=== PATIENT | male | born 1990 | race Caucasian/White ===

== ENCOUNTER 2019-12-25 12:05 | Emergency (ER) | payer BC, SELFPAY ==
[2019-12-25] MEDS ORDERED: Ibuprofen 800 MG TAB ONE (12:47)
== END 2019-12-25 12:57 | disposition home or self-care (01) ==
LOC: MADERS 12:05
DX: S43.401A Unspecified sprain of right shoulder joint, initial encounter (principal); R21 Rash and other nonspecific skin eruption; X58.XXXA Exposure to other specified factors, initial encounter; Y93.72 Activity, wrestling
CPT/HCPCS: 99283

== ENCOUNTER 2020-05-14 13:01 | Emergency (ER) | payer SELFPAY ==
[2020-05-14] MEDS ORDERED: Lidocaine 1% w/Epinephrine 1:100K 20 ML VIAL ONE (13:17)
[2020-05-14] MEDS ORDERED: Boostrix 0.5 ML (Tdap) VIAL ONE (13:37)
[2020-05-14] MEDS ORDERED: HYDROcodone/Acetaminophen 5/325 mg Tablet ONE (13:48)
[2020-05-14] MEDS ORDERED: Cephalexin 500 MG CAP ONE (13:49)
[2020-05-14] MEDS ORDERED: Bacitracin 1 PK ONE (13:49)
== END 2020-05-14 14:08 | disposition home or self-care (01) ==
LOC: MADERS 13:01
DX: S71.111A Laceration without foreign body, right thigh, initial encounter (principal); Z23 Encounter for immunization; W27.0XXA Contact with workbench tool, initial encounter
CPT/HCPCS: 12004; 90471; 90715

== ENCOUNTER 2022-01-08 11:22 | Emergency (ER) | payer BC, SELFPAY ==
[~2022-01-08 11:22] MED LIST: Sodium Chloride 0.9% 1,000 ML BAG ONE
[2022-01-08] MEDS ORDERED: Ondansetron PF 4 MG/2 ML Vial ONE (11:43)
[2022-01-08] MEDS ORDERED: Ketorolac Tromethamine 30 MG/ML VIAL ONE (12:15)
[2022-01-08] MEDS ORDERED: diphenhydrAMINE 50 MG/ML VIAL ONE (12:15)
[2022-01-08] MEDS ORDERED: Sodium Chloride 0.9% 2,000 ML ONE (12:15)
[2022-01-08] MEDS ORDERED: Metoclopramide HCl 10 MG/2 ML VIAL ONE (12:15)
[2022-01-08 12:36] LABS: Base Excess-Venous 0.4 mmol/L (-2.0 to 3.0); Bicarbonate (HCO3v) 24.9 mmol/L (22.0-28.0); CO2 Tension (PvCO2) 38.9 mmHg (42.0-51.0); Calcium, Ionized 1.14 mmol/L (1.15-1.33); Chloride 106 mmol/L (98-107); Hemoglobin - Calc 13.8 g/dL (14.0-18.0); Potassium 3.6 mmol/L (3.5-5.1); Sodium 142 mmol/L (138-145); T. Carbon Dioxide 26.1 mmol/L (22.0-28.0); vO2 Saturation-calc 90.1 % (60.0-85.0)
[2022-01-08 12:36] LABS: #Basophils 0.1 thou/uL (0.0-0.2); #Eosinphils 0.4 thou/uL (0.0-0.7); #Lymphocytes 2.7 thou/uL (1.20-3.40); #Monocytes 0.5 thou/uL (0.11-0.59); %Basophils 1.3 % (0.0-1.0); %Eosinophils 6.2 % (0.0-10.0); %Lymphocytes 40.7 % (21.0-51.0); %Neutrophils 43.9 % (42.0-75.0); Hemoglobin 15.2 g/dL (14.0-18.0); Mean Corpuscular HGB CONC 33.6 g/dL (32.0-36.0); Mean Corpuscular Volume 83.5 fL (78.0-98.0); Platelet Count 156 thou/uL (130-400); RBC Distribution Width 11.9 % (11.5-14.5); Red Blood Cell (RBC) Count 5.42 mill/uL (4.70-6.10); White Blood Cell (WBC) Count 6.4 thou/uL (4.8-10.8)
[2022-01-08 12:41] LABS: Acetaminophen Less than 10.0 mcg/mL (10.0-30.0); Alcohol Less than 10 mg/dL (Less than 10); Salicylate Less than 8.0 mg/dL (15.0-30.0)
[2022-01-08 12:44] LABS: ALT (SGPT) 12 U/L (8-55); AST (SGOT) 15 U/L (5-34); Albumin 4.3 g/dL (3.5-5.0); Alkaline Phosphatase 49 U/L (40-110); Anion Gap 12 mmol/L (10-20); BUN (Urea Nitrogen) 20 mg/dL (8.9-20.6); Bilirubin, Total 1.9 mg/dL (0.2-1.2); Calc. Creatinine Clearance 0 mL/min (70-130); Calcium 9.2 mg/dL (7.8-10.44); Carbon Dioxide 25 mmol/L (22-29); Chloride 104 mmol/L (98-107); Estimated GFR 107; Globulin 2.5 g/dL (2.4-3.5); Glucose 96 mg/dL (70-105); Magnesium 2.1 mg/dL (1.6-2.6); Potassium 3.9 mmol/L (3.5-5.1); Protein, Total 6.8 g/dL (6.0-8.3); Sodium 137 mmol/L (136-145)
[2022-01-08 12:49] LABS: MDiff Complete? YES
[2022-01-08 12:50] LABS: Platelet Morphology Comment Appears Adequate
[2022-01-08 13:36] LABS: SARS-CoV-2 NAA Rapid Test Not Detected (NotDetected)
[2022-01-08 15:41] LABS: Amphetamine Not Detected (NotDetected); Barbiturates Screen Not Detected (NotDetected); Benzodiazepine Screen Not Detected (NotDetected); Cocaine Metabolite Screen Not Detected (NotDetected); Medtox Control Line Valid? VALID (VALID); Methadone Not Detected (NotDetected); Methamphetamine Not Detected (NotDetected); Opiate Screen Not Detected (NotDetected); Oxycodone Screen Not Detected (NotDetected); Phencyclidine (PCP) Not Detected (NotDetected); THC/Cannabinoid Screen Not Detected (NotDetected); Tricyclic Screen Not Detected (NotDetected)
== END 2022-01-08 16:20 | disposition home or self-care (01) ==
LOC: MADERS 11:22
DX: R51.9 Headache, unspecified (principal); R20.2 Paresthesia of skin; R29.700 NIHSS score 0; Z20.822 Contact with and (suspected) exposure to COVID-19
CPT/HCPCS: 70450; 71045; 80053; 80306; 80307; 82330; 82550; 82803; 82805; 83605; 83735; 83880; 84443; 84484; 85025; 93005; 96374; 96375; J1200; J1885; J2405; J2765; J7050; U0002

== ENCOUNTER 2025-02-23 13:14 | Emergency (ER) | payer BC ==
[2025-02-23] MEDS ORDERED: Boostrix 0.5 ML (Tdap) VIAL (>/=7 yrs of age) ONE (13:59)
[2025-02-23] MEDS ORDERED: Lidocaine 1%/Epinephrine 1:100K 10 ML VIAL ONE (13:59)
[2025-02-23] MEDS ORDERED: Bacitracin 1 PK ONE (14:22)
== END 2025-02-23 14:25 | disposition home or self-care (01) ==
LOC: MADERS 13:14
DX: S61.412A Laceration without foreign body of left hand, initial encounter (principal); Z23 Encounter for immunization; Z87.891 Personal history of nicotine dependence; W26.8XXA Contact with other sharp object(s), not elsewhere classified, initial encounter
CPT/HCPCS: 12001; 90471; 90715